=== PATIENT | male | born 1945 | race Caucasian/White ===

== ENCOUNTER 2017-02-25 16:28 | Emergency (ER) | payer OTHER ==
[~2017-02-25] VITALS: Ht 177.8 cm; Wt 66.7 kg
[2017-02-25] MEDS ORDERED: XANAX0.25 MG PO (20:05)
[2017-02-25 20:16] VITALS: BP 195/93
== END 2017-02-25 20:20 | disposition home or self-care (01) ==
LOC: EME 16:28
DX: F41.9 Anxiety disorder, unspecified (principal); R63.4 Abnormal weight loss; F43.23 Adjustment disorder with mixed anxiety and depressed mood; K59.00 Constipation, unspecified; R41.0 Disorientation, unspecified; Z68.21 Body mass index [BMI] 21.0-21.9, adult
CPT/HCPCS: 90839; 99281; 99285